=== PATIENT | female | born 1965 | race Caucasian/White ===

== ENCOUNTER 2017-04-11 16:27 | Emergency (ER) | payer OTHER ==
[~2017-04-11] VITALS: Ht 160 cm; Wt 67.8 kg
[~2017-04-11 16:27] MED LIST: MOTRIN800 MG PO; NOHOMEMEDS; NORCO 7.5/321 TABLET PO; ZOFRAN ODT4 MG PO
[2017-04-11 17:43] LABS: ADD MIUA? YES; BILIRUBIN NEGATIVE; BLOOD NEGATIVE; COLOR STRAW ((YELLOW)); GLUCOSE (STRIP) NEGATIVE; KETONES NEGATIVE; LEUKOCYTES TRACE; NITRITE NEGATIVE; PROTEIN (STRIP) NEGATIVE; SPECIFIC GRAVITY 1.005 (1.000-1.030); UROBILINOGEN 0.2 MG/DL (0.2-1.0)
[2017-04-11 17:50] LABS: BACTERIA RARE /HPF; EPITHELIAL CELLS RARE /HPF; MUCUS NONE SEEN /LPF; RED BLOOD CELLS 0-5 /HPF (0-5); UCUL ADDED? NO; WHITE BLOOD CELLS 0-5 /HPF (0-5)
[2017-04-11 18:17] LABS: HEMATOCRIT 41.4 % (36.0-46.0); MCH 26.9 PG (29.0-34.0); MCHC 32.9 G/DL (30.0-36.0); MEAN PLAT.VOLUME 11.4 uM^3 (9.5-12.4); PLATELET COUNT 210 K/uL (156-360); RBC DIS.WIDTH-CV 13.6 % (11.8-14.6); RBC DIS.WIDTH-SD 40.4 % (39-53); RED BLOOD COUNT 5.05 M/uL (3.80-5.20); WHITE BLOOD COUNT 8.6 K/uL (4.1-10.2)
[2017-04-11 18:23] LABS: CHLORIDE 106 mEq/L (99-109); POTASSIUM 3.8 mEq/L (3.7-5.4); SODIUM 139 mEq/L (136-147)
[2017-04-11 18:25] LABS: GLUCOSE 101 mg/dL (70-99)
[2017-04-11 18:26] LABS: ANION GAP 10 MEQ/L (2-14)
[2017-04-11 18:27] LABS: TOTAL BILIRUBIN 0.9 mg/dL (0.0-1.0)
[2017-04-11 18:29] LABS: ALKALINE PHOSPHATASE 120 IU/L (3-129); GFR ESTIMATE (CALCULATED) > 59 mL/min/
[2017-04-11 18:30] LABS: UREA NITROGEN (BUN) 10 mg/dL (9-23)
[2017-04-11 18:37] LABS: QUANTITATIVE HCG < 4.0 MIU/ML
[2017-04-11] MEDS ORDERED: ZOFRAN ODT4 MG PO (19:53)
[2017-04-11] MEDS ORDERED: BACTRIM,SEPT1 TABLET PO (19:53)
[2017-04-11] MEDS ORDERED: PYRIDIUM200 MG PO (20:05)
[2017-04-11 21:17] VITALS: BP 158/85
== END 2017-04-11 21:17 | disposition home or self-care (01) ==
LOC: EME 16:27
PROVIDERS: Physician Assistant Medical
DX: N20.0 Calculus of kidney (principal); N83.201 Unspecified ovarian cyst, right side; R30.0 Dysuria; R11.2 Nausea with vomiting, unspecified; N89.8 Other specified noninflammatory disorders of vagina; K44.9 Diaphragmatic hernia without obstruction or gangrene; Z87.442 Personal history of urinary calculi
CPT/HCPCS: 74176; 80053; 81003; 84702; 85027; 99281; 99284; J1885

== ENCOUNTER 2017-04-13 08:54 | Emergency (ER) | payer OTHER ==
[~2017-04-13] VITALS: Ht 160 cm; Wt 67.5 kg
[~2017-04-13 08:54] MED LIST changes: +BACTRIM,SEPT1 TABLET PO; +PYRIDIUM200 MG PO
[2017-04-13 11:34] LABS: ADD MIUA? YES; BILIRUBIN NEGATIVE; BLOOD SMALL; COLOR YELLOW ((YELLOW)); GLUCOSE (STRIP) NEGATIVE; KETONES NEGATIVE; LEUKOCYTES MODERATE; NITRITE NEGATIVE; PROTEIN (STRIP) NEGATIVE; SPECIFIC GRAVITY 1.027 (1.000-1.030); UROBILINOGEN 0.2 MG/DL (0.2-1.0)
[2017-04-13 11:42] LABS: BACTERIA 2+ /HPF; CALCIUM OXALATE CRYSTALS 2+ /HPF; EPITHELIAL CELLS 3+ /HPF; MUCUS 3+ /LPF; UCUL ADDED? YES
[2017-04-13] MEDS ORDERED: BACTRIM,SEPT1 TABLET PO (13:45)
[2017-04-13] MEDS ORDERED: NAPROSYN500 MG PO (13:45)
[2017-04-13] MEDS ORDERED: FLEXERIL10 MG PO (13:45)
[2017-04-13 14:07] VITALS: BP 134/64
== END 2017-04-13 14:08 | disposition home or self-care (01) ==
LOC: EME 08:54
PROVIDERS: Emergency Medicine
DX: N39.0 Urinary tract infection, site not specified (principal); S00.93XA Contusion of unspecified part of head, initial encounter; S16.1XXA Strain of muscle, fascia and tendon at neck level, initial encounter; W10.9XXA Fall (on) (from) unspecified stairs and steps, initial encounter; Y92.009 Unspecified place in unspecified non-institutional (private) residence as the place of occurrence of the external cause; G93.9 Disorder of brain, unspecified; R11.10 Vomiting, unspecified; Z88.1 Allergy status to other antibiotic agents
CPT/HCPCS: 70450; 72125; 81003; 87086; 99281; 99284

== ENCOUNTER 2017-12-15 18:40 | Emergency (ER) | payer OTHER ==
[~2017-12-15] VITALS: Ht 160 cm; Wt 71.8 kg
[~2017-12-15 18:40] MED LIST changes: +FLEXERIL10 MG PO; +NAPROSYN500 MG PO
[2017-12-15] MEDS ORDERED: BENADRYL50 MG PO (19:07)
[2017-12-15] MEDS ORDERED: PREDNISONE10 MG PO (19:07)
[2017-12-15] MEDS ORDERED: PEPCID20 MG PO (19:07)
[2017-12-15 19:41] VITALS: BP 160/83
== END 2017-12-15 19:42 | disposition home or self-care (01) ==
LOC: EME 18:40
DX: L25.9 Unspecified contact dermatitis, unspecified cause (principal); Z88.0 Allergy status to penicillin
CPT/HCPCS: 99281; 99284; J7512